=== PATIENT | female | born 1940 | race Caucasian/White ===

== ENCOUNTER 2024-11-24 09:21 | Emergency (ER) | payer MEDICARE, OTHER, SELFPAY ==
[2024-11-24 09:33] VITALS: BP 175/95
[2024-11-24 09:51] LABS: % Basophils 0.6 % (0-2); % Eosinophils 2.1 % (0-6); % Immature Granulocytes 0.4 % (0-0.5); % Lymphocytes 22.4 % (20.5-51.1); % Monocytes 10.3 % (1.7-9.3); % Neutrophils 64.2 % (42.2-75.2); Absolute Basophils 0.1 10^3/uL (0-0.2); Absolute Eosinophils 0.2 10^3/uL (0-0.7); Absolute Lymphocytes 1.7 10^3/uL (1.2-3.4); Absolute Monocytes 0.8 10^3/uL (0.1-0.6); Hemoglobin 13.9 g/dL (12.0-16.0); Mean Corp Hgb Conc. 33.1 g/dL (33.0-37.0); Mean Corpuscular Hgb 31.5 pg (27.0-31.0); Mean Corpuscular Volume 95.2 fL (81.0-99.0); Mean Platelet Volume 10.4 fL (7.4-10.4); Nucleated Red Blood Cells % 0 %; Platelet Count 200 10^3/uL (130-400); Red Blood Cell Count 4.41 10^6/uL (4.20-5.40); White Blood Cell Count 7.7 10^3/uL (4.8-10.8)
[2024-11-24 10:16] LABS: ALT (SGPT) 19 U/L (0-35); AST (SGOT) 24 U/L (14-36); Albumin 4.1 g/dl (3.5-5.0); Alkaline Phosphatase 60 U/L (38-126); Blood Urea Nitrogen 19 mg/dl (7-17); Calcium 9.1 mg/dl (8.4-10.2); Carbon Dioxide 32 mmol/L (22-30); Chloride 101 mmol/L (98-107); Glucose 108 mg/dl (70-99); Lipase 151 U/L (23-300); Potassium 4.6 mmol/L (3.5-5.1); Sodium 140 mmol/L (135-145); Total Bilirubin 0.5 mg/dl (0.2-1.3); Total Protein 7.3 g/dl (6.3-8.2); eGFR > 60.00
--- NOTE | 2024-11-24 11:07 | ED.GENMED ---
History of Present Illness
General
Chief Complaint: Abdominal Pain
Source: patient and spouse
Exam Limitations: none
Time Seen by Provider: 11/24/24 10:50
Nursing documentation reviewed up to this point in time: agreed with
History of Present Illness
History of Present Illness:
84-year-old female presents emergency department complaining of left side abdominal pain radiating to her back. Started yesterday. She denies nausea and vomiting. She states she had a normal bowel movement yesterday. She denies any difficulty
urinating.
Past History
Past History
ED Past Medical History: None; Negative Asthma, HTN, Hypercholesterolemia or NIDDM
ED Past Surgical History: Appendectomy and Orthopedic (Right hip replacement)
Social History
Tobacco: Non-smoker
Alcohol: None
Drug: None
Personal:
Living: with family
Review of Systems
Review of Systems
Allergies reviewed?: Yes
All Other Systems: Not applicable
Constitutional: Reports no symptoms
EENT: Reports no symptoms
Respiratory: Reports no symptoms
Cardiac: Reports no symptoms
ABD/GI: Reports no symptoms
: Reports no symptoms
Musculoskeletal: Reports no symptoms
Skin: Reports no symptoms
Neurological: Reports no symptoms
Endocrine: Reports no symptoms
Hematologic/Lymphatic: Reports no symptoms
Psychiatric: Reports no symptoms
Phy Exam
Physical Exam
Physical Exam:
Physical Exam
General: no apparent distress, not acutely ill
Neck: supple. no meningeal signs. normal posterior pharynx
Heart: s1/s2 regular rate and rhythm, no murmur. equal radial
pulses.
HEENT: Pupils equal round reactive to light, EOMI
Lungs: no acute respiratory distress. clear bilaterally
Abdomen: normal bowel sounds. Left-sided abdominal tenderness. no CVAT
Neuro: alert and oriented. no focal neurological deficits cranial nerves II through XII intact
Skin: no rash
Psychiatric: well kept. interactive and cooperative
Extremities: no edema. no calf tenderness. negative homans. good distal pulses
Course
Orders/Labs/Results
Orders:
Orders
11/24/24 09:40
Complete Blood Count/With Diff Urgent
Comprehensive Metabolic Panel Urgent
Lipase Urgent
11/24/24 11:06
CT Abd/pelvis W Iv Cont Urgent
Comment:
Reason For Exam: left side abd pain
11/24/24 11:07
IV Insert/Care/Rem.- Treatment PRN
11/24/24 11:32
Urinalysis Reflex To Culture Urgent
Date Specimen was Collected: 11/24/24
Time Specimen was Collected: 11:28
Abnormal Lab Results
11/24/24
09:40
MCH 31.5 H pg
(27.0-31.0)
Absolute Monos (auto) 0.8 H 10^3/uL
(0.1-0.6)
Monocytes % 10.3 H %
(1.7-9.3)
Carbon Dioxide 32 H mmol/L
(22-30)
BUN 19 H mg/dl
(7-17)
Glucose 108 H mg/dl
(70-99)
11/24/24 09:40
11/24/24 09:40
Vital Signs
Initial and Last Documented VS:
Initial Vital Signs
Temp Pulse Resp BP Pulse Ox
97.5 F 93 18 175/95 98
11/24/24 09:33 11/24/24 09:33 11/24/24 09:33 11/24/24 09:33 11/24/24 09:33
Last Documented Vital Signs
Temp Pulse Resp BP Pulse Ox
97.5 F 92 18 168/72 96
11/24/24 09:33 11/24/24 13:16 11/24/24 13:16 11/24/24 13:16 11/24/24 13:16
MDM/Problems Addressed
Differential Diagnosis Includes:
Constipation, diverticulitis
MDM/Problems Addressed:
84-year-old female with constipation abdominal pain. No acute findings on labs or CT abdomen pelvis.
*Radiology
Radiology exam reviewed: radiology read reviewed (CT abdomen pelvis shows constipation)
*Pulse Oximetry
Patient hypoxic: no
*Critical Care Note
Total Time (30-74mins, 75-104mins- exclusive of procedures): Not Applicable
Patient Management
Social determinants of health affecting care: Living situation and Strong social support
Escalation/DeEscalation of care consider admission/obs:
Admit not indicated
ED Attending Note
-
Portions of this chart may have been created with voice recognition software.� Occasional wrong word or��sound alike� substitutions may have occurred due to the inherent limitations of voice recognition software.
Discharge Plan
Departure
Patient Disposition: Home (Routine Discharge)
Date of Disposition: 11/24/24
Time of Disposition: 13:17
Patient with high blood pressure during this ER visit?: Yes
Condition: Good
Discharge Problem:
Constipation, Abdominal pain
Instructions: Abdominal Pain, BLOOD PRESSURE
Prescriptions:
No Action
ibuprofen 200 MG capsule
200 mg PO DAILY PRN (Reason: low grade pain)
aspirin [Adult Aspirin Regimen] 81 MG tablet,delayed release (DR/EC)
81 mg PO DAILY
Referrals:
L[place] Giraldo MD [Family Provider] - Call in 1-3 days for appt
Interventions
Interventions:
*Risk Screen - Suicide Last Done: 11/24/24 09:33
*General Assessment Last Done: 11/24/24 09:33
*Neglect/Abuse Screening Last Done: 11/24/24 09:33
MS-Eranpf-[id number] Assessment Last Done: 11/24/24 11:08
Discharge Date and Time
Print Language: WOLOF
[2024-11-24 11:09] VITALS: BMI 34.5
[2024-11-24 11:41] LABS: Urine Albumin Negative (Neg - Trace); Urine Bilirubin Negative (Negative); Urine Character Clear (Clear); Urine Color Straw; Urine Glucose Negative (Negative); Urine Ketone Negative (Negative); Urine Leukocyte Negative (Negative); Urine Nitrite Negative (Negative); Urine Occult Blood Negative (Negative); Urine Urobilinogen Negative (Neg - 1+)
[2024-11-24 13:16] VITALS: BP 168/72
== END 2024-11-24 14:00 | disposition home or self-care (01) ==
LOC: EMR 09:21
PROVIDERS: EMERGENCY PHYSICIAN Emergency Medicine; FAMILY PHYSICIAN Family Medicine
DX: K59.00 Constipation, unspecified (principal); Z90.49 Acquired absence of other specified parts of digestive tract
CPT/HCPCS: 99284; 74177; 80053; 81003; 83690; 85025; Q9967